=== PATIENT | male | born 1980 | race Caucasian/White ===

== ENCOUNTER 2017-12-13 15:56 | Emergency (ER) | payer OTHER ==
[2017-12-13 16:34] VITALS: BP 109/73; PULSE 62; RESP 18; TEMP 98.4; O2SAT 97
--- NOTE | 2017-12-13 17:25 | C.PDOC ---
History Of Present Illness 37 y/o male with no sig pmh c/o itchy rash to arms and torso for the last week. pt denies any change in soaps, detergents. topical lotions. pt sts it is worse at night. denies any insect infestation in bed. . pt has taken nothing for this rash. pt reports similar rash last year in [place], was given some pills by doctor and it cleared up. pt has no recall what medications it was. pt has not seem pmd. no difficulty breating or swallowing. Time Seen by Provider: 12/13/17 17:05 Chief Complaint (Nursing): Abnormal Skin Integrity History Per: Patient History/Exam Limitations: no limitations Onset/Duration Of Symptoms: Days (7) Current Symptoms Are (Timing): Still Present Quality Of Symptoms: Itching Severity: Moderate Past Medical History Reviewed: Historical Data, Nursing Documentation, Vital Signs Vital Signs: Last Vital Signs Temp 98.4 F 12/13/17 16:32 Pulse 62 12/13/17 16:32 Resp 18 12/13/17 16:32 BP 109/73 12/13/17 16:32 Pulse Ox 97 12/13/17 17:26 - Medical History PMH: No Chronic Diseases Family History: States: Unknown Family Hx - Social History Hx Alcohol Use: No Hx Substance Use: No - Immunization History Hx Tetanus Toxoid Vaccination: No Hx Influenza Vaccination: No Hx Pneumococcal Vaccination: No Review Of Systems Constitutional: Negative for: Fever, Chills ENT: Negative for: Mouth Swelling, Throat Swelling Respiratory: Negative for: Cough, Shortness of Breath Skin: Positive for: Rash Neurological: Negative for: Weakness, Numbness Physical Exam - Physical Exam Appears: Non-toxic, No Acute Distress Skin: Warm, Dry, Rash (patchy erythamtous areas to upper back, anterior chest wall, scattered over bilateral arms. ) Head: Atraumatic, Normacephalic Oral Mucosa: Moist Tongue: Normal Appearing, No Swelling Lips: Normal Appearing, No Swelling Chest: No Tenderness Cardiovascular: Rhythm Regular, No Murmur Respiratory: No Decreased Breath Sounds, No Wheezing Neurological/Psych: Oriented x3, Normal Speech, Normal Cognition ED Course And Treatment O2 Sat by Pulse Oximetry: 97 Medical Decision Making Medical Decision Making: pt with erythematous scattered itchy rash; noting tried at home. d/c with benadryl. Disposition Counseled Patient/Family Regarding: Diagnosis, Need For Followup, Rx Given - Disposition Referrals: [facility] [Outside] Disposition: HOME/ ROUTINE Disposition Time: 17:22 Condition: GOOD Additional Instructions: Please wash all bedding and sleep clothes in detergent you have you in past without problem. Take Benadryl for itch; it makes you sleepy, so do not drive or operate machinery when taking this medicine. Follow up in medical clinic in the next few days for further evaluation. Avoid any new topical creams, lotions , perfumes. Use only hypoallergenic soaps such as Ivory or Dove. Return to ER for increasing rash, fever, any swelling to lips, face or mouth Prescriptions: DiphenhydrAMINE [Benadryl] 25 mg PO Q6 #40 cap Instructions: Skin Rash (DC) Forms: [facility] (Nepali), General Discharge Instructions - Clinical Impression Clinical Impression: Rash and nonspecific skin eruption
== END 2017-12-13 17:34 | disposition home or self-care (01) ==
LOC: C.ER 15:56
DX: R21 Rash and other nonspecific skin eruption (principal)